=== PATIENT | female | born 1940 | race Caucasian/White ===

== ENCOUNTER → 2020-10-06 09:46 | Outpatient (BNVA) | payer MEDICARE, MEDICAID, SELFPAY | PROVIDERS: PCP Internal Medicine; Visit Provider Nurse Practitioner Family | DX: I48.0 Paroxysmal atrial fibrillation (principal); I73.9 Peripheral vascular disease, unspecified; I25.10 Atherosclerotic heart disease of native coronary artery without angina pectoris; I95.1 Orthostatic hypotension; I10 Essential (primary) hypertension; E11.9 Type 2 diabetes mellitus without complications; E78.5 Hyperlipidemia, unspecified; Z79.899 Other long term (current) drug therapy | CPT/HCPCS: 93005; 99212 ==

== ENCOUNTER → 2020-11-10 10:57 | Outpatient (BNVA) | payer MEDICARE, MEDICAID, SELFPAY | PROVIDERS: PCP Internal Medicine; Visit Provider Nurse Practitioner Family | DX: I95.1 Orthostatic hypotension (principal); I10 Essential (primary) hypertension; I48.0 Paroxysmal atrial fibrillation; I73.9 Peripheral vascular disease, unspecified; I25.10 Atherosclerotic heart disease of native coronary artery without angina pectoris; E78.5 Hyperlipidemia, unspecified; E11.9 Type 2 diabetes mellitus without complications; Z79.899 Other long term (current) drug therapy | CPT/HCPCS: Q3014 ==

== ENCOUNTER 2020-11-19 12:26 | Outpatient (REF) | payer MEDICARE, MEDICAID, SELFPAY ==
[2020-11-19 13:53] LABS: MANUAL DIFF FLAG NO
[2020-11-19 13:59] LABS: Basophils Absolute Auto 0.1 X10*3/uL (0.0-0.2); Basophils Percent Auto 0.8 % (0-2); Eosinophils Absolute Auto 0.5 X10*3/uL (0.0-0.4); Hemoglobin 12.3 g/dl (12.0-16.0); Imm Gran Abs Auto 0.02 X10*3/uL (0.00-0.03); Imm Gran Pct Auto 0.2 % (0.0-0.4); Lymphocytes Absolute Auto 3.4 X10*3/uL (1.2-4.9); Lymphocytes Percent Auto 33.6 % (20-40); Mean Corpuscular HGB Conc 31.5 g/dl (31.0-35.0); Mean Corpuscular Hemoglobin 28.3 pg (27.0-33.0); Mean Corpuscular Volume 89.7 fL (80-98); Mean Platelet Volume 11.6 fL (9.4-12.3); Monocytes Absolute Auto 0.5 X10*3/uL (0.1-1.2); Monocytes Percent Auto 4.7 % (2-11); Neutrophils Absolute Auto 5.6 X10*3/uL (2.0-8.3); Neutrophils Percent Auto 55.7 % (45-73); Platelet Count 275 X10*3/uL (160-400); Red Blood Count 4.35 X10*6/uL (4.20-5.50); Red Cell Distribution Width 14.1 % (11.0-16.0); White Blood Count 10.1 X10*3/uL (4.8-10.8)
[2020-11-19 14:28] LABS: Anion Gap 15 (12-20); Blood Urea Nitrogen 22 mg/dL (9-16); Calcium 8.8 mg/dL (8.4-10.2); Carbon Dioxide 27 mmol/L (22-29); Chloride 99 mmol/L (96-108); Cholesterol 139 mg/dL; Estimated Glomerular Filt Rate 32; Glucose Fasting 415 mg/dL (60-99); HDL Cholesterol 44 mg/dL; LDL Cholesterol Calculated 68 mg/dl; Potassium 4.8 mmol/L (3.3-5.1); Sodium 136 mmol/L (135-145); Triglycerides 136 mg/dL
== END 2020-11-19 12:27 | disposition home or self-care (01) ==
LOC: HO.LAB 12:26
PROVIDERS: PCP Internal Medicine; Visit Provider Nurse Practitioner Family
DX: I10 Essential (primary) hypertension (principal)
CPT/HCPCS: 36415; 80048; 80061; 85025

== ENCOUNTER → 2021-04-19 09:49 | Outpatient (BNVA) | payer MEDICARE, MEDICAID, SELFPAY | PROVIDERS: PCP Internal Medicine; Visit Provider Internal Medicine | DX: I25.10 Atherosclerotic heart disease of native coronary artery without angina pectoris (principal); I48.0 Paroxysmal atrial fibrillation; I95.1 Orthostatic hypotension; I73.9 Peripheral vascular disease, unspecified | CPT/HCPCS: 99212 ==

== ENCOUNTER 2021-10-25 14:38 | Emergency (ER) | payer MEDICARE, MEDICAID, SELFPAY ==
--- NOTE | ~2021-10-25 | CT_ITS ---
EXAMINATION: CT ABDOMEN AND PELVIS WITHOUT CONTRAST CLINICAL INFORMATION: Lower abdominal pain COMPARISON: 07/25/2019 TECHNIQUE: Multidetector volumetric imaging was performed from the superior aspect of the liver through the pubic symphysis. Sagittal and coronal reformatted images were obtained on the technologist's workstation. This CT examination was performed using dose optimization techniques as appropriate, variously including the following: *Automated exposure control *Adjustment of mA and/or kV according to patient size (this includes techniques or standardized protocols for targeted exams where dose is matched to indication/reason for exam; i.e. extremities or head) *Use of iterative reconstruction technique DLP: 494 mGy-cm FINDINGS: LUNG BASES: Clear. LIVER, GALLBLADDER, AND BILIARY TREE: The liver is normal in size, shape, and attenuation. No focal hepatic lesion or biliary ductal dilatation is present. Gallbladder unremarkable. PANCREAS: Unremarkable. SPLEEN: Unremarkable. ADRENAL GLANDS: Unremarkable. KIDNEYS AND URETERS: The kidneys are normal in size, shape, and attenuation. No hydronephrosis, hydroureter, or calculi seen. Bilateral simple fluid attenuating renal cysts are present measuring up to 7.5 cm within the left kidney. No perinephric stranding. BLADDER: Unremarkable. GASTROINTESTINAL TRACT: Left colonic diverticulosis, most concentrated within the sigmoid colon. There is wall thickening pericolic fat stranding diffusely involving the sigmoid colon suggestive sigmoiditis ABDOMINAL WALL: No significant hernia is appreciated. LYMPH NODES: Normal. VASCULAR: Aorta is atherosclerotic but normal caliber. PELVIC VISCERA: Hysterectomy. Left ovary unremarkable. Right ovary not seen. OSSEOUS STRUCTURES: Unremarkable. CT/CT abdomen pelvis wo con IMPRESSION: Findings compatible sigmoiditis. While there are scattered colonic diverticula which are most concentrated within the sigmoid colon, the inflammatory changes involving the sigmoid colon appear somewhat, and not necessarily related to diverticulitis. Consider infectious, inflammatory or ischemic colitis. Fleischner guidelines were followed.
[2021-10-25 15:26] VITALS: BP 137/65; PULSE 72; RESP 16; TEMP 36.2; O2SAT 98; BMI 30.9
[2021-10-25 16:03] LABS: Eosinophils Absolute Auto 0.2 X10*3/uL (0.0-0.4); Eosinophils Percent Auto 1.3 % (0-4); Imm Gran Abs Auto 0.03 X10*3/uL (0.00-0.03); Imm Gran Pct Auto 0.3 % (0.0-0.4); MANUAL DIFF FLAG SCAN; PLT CLUMP 1; Red Cell Distribution Width 14.2 % (11.0-16.0); SCAN SMEAR FLAG 1
[2021-10-25 16:05] LABS: Basophils Absolute Auto 0.1 X10*3/uL (0.0-0.2); Basophils Percent Auto 0.4 % (0-2); Hematocrit 38.9 % (37.0-47.0); Hemoglobin 12.8 g/dl (12.0-16.0); Lymphocytes Absolute Auto 2.5 X10*3/uL (1.2-4.9); Lymphocytes Percent Auto 21.2 % (20-40); Mean Corpuscular HGB Conc 32.9 g/dl (31.0-35.0); Mean Corpuscular Hemoglobin 29.2 pg (27.0-33.0); Mean Corpuscular Volume 88.6 fL (80.0-98.0); Mean Platelet Volume 10.5 fL (9.4-12.3); Monocytes Absolute Auto 0.4 X10*3/uL (0.1-1.2); Monocytes Percent Auto 3.1 % (2-11); Neutrophils Absolute Auto 8.7 x10*3/uL (2.0-8.3); Neutrophils Percent Auto 73.7 % (45-73); Red Blood Count 4.39 X10*6/uL (4.20-5.50)
[2021-10-25 16:06] LABS: White Blood Count 11.8 X10*3/uL (4.8-10.8)
[2021-10-25 16:11] LABS: Anion Gap 15 (12-20); Blood Urea Nitrogen 24 mg/dL (9-16); Calcium 8.8 mg/dL (8.4-10.2); Carbon Dioxide 23 mmol/L (22-29); Chloride 107 mmol/L (96-108); Creatinine Clr Calc Pharmacy 26.4; Estimated Glomerular Filt Rate 36; Glucose Random 148 mg/dL (60-115); Potassium 4.5 mmol/L (3.3-5.1); Sodium 140 mmol/L (135-145)
[2021-10-25 16:15] LABS: COVID-19 Test Negative (Negative)
[2021-10-25 16:28] LABS: Platelet Count 288 X10*3/uL (160-400)
[2021-10-25 16:29] LABS: SLIDE REVIEW VERIFIED
[2021-10-26 00:41] VITALS: BP 156/61; PULSE 69; RESP 12; TEMP 37.1; O2SAT 96
--- NOTE | 2021-10-26 00:43 | ED.NAVMDI ---
HPI - Nausea/Vomiting/Diarrhea General Chief complaint: Nausea/Vomiting/Diarrhea Stated complaint: diarrhea abd pain rectal bleeding Time Seen by Provider: 10/26/21 00:43 Source: patient Mode of arrival: ambulatory Limitations: no limitations History of Present Illness HPI Narrative: patient with diarrhea for 4 days, patient states she is having some diarrhea that is mixed and by itself. NO history of hemorrhoids, history of diverticulitis. No fever but has low abdominal pain MD elicited complaint: diarrhea Pertinent past history: other (diverticulitis) Onset (ago): day(s) Description of diarrhea: blood Associated nausea: No Associated abdominal pain: Yes Location of pain: RLQ and LLQ Severity: mild Quality: cramping Associated symptoms: denies other symptoms Related Data Home Medications Medication Instructions Recorded Confirmed amlodipine 5 mg tablet (Norvasc) 5 mg PO DAILY 10/06/20 11/10/20 atorvastatin 80 mg tablet 80 mg PO DAILY 10/06/20 04/19/21 esomeprazole magnesium 20 mg 20 mg PO DAILY 10/06/20 04/19/21 capsule,delayed release (Nexium 24HR) gabapentin 300 mg capsule 300 mg PO TID 10/06/20 04/19/21 insulin glargine 100 unit/mL (3 10 unit SUBCUT QPM 10/06/20 04/19/21 mL) subcutaneous pen (Lantus Solostar U-100 Insulin) levothyroxine 50 mcg capsule 50 mcg PO DAILY 10/06/20 04/19/21 sitagliptin 25 mg tablet (Januvia) 25 mg PO DAILY 10/06/20 04/19/21 calcium carbonate 600 mg-vitamin cap PO 04/19/21 04/19/21 D3 5 mcg (200 unit) capsule Previous Rx's Medication Instructions Recorded apixaban 5 mg tablet (Eliquis) 5 mg PO BID 90 Days #180 tab 04/19/21 carvedilol 25 mg tablet 25 mg PO BID 90 Days #180 tab 08/03/21 levofloxacin 500 mg tablet 500 mg PO DAILY 10 Days #10 tab 10/26/21 metronidazole 500 mg tablet 500 mg PO TID #30 tab 10/26/21 Allergies Allergy/AdvReac Type Severity Reaction Status Date / Time Penicillins [PCN] Allergy Unknown UNKNOWN Unverified 04/16/20 19:30 penicilline Allergy Unknown Uncoded 02/19/20 00:00 Review of Systems Constitutional: Constitutional: Reports no additional constitutional complaints Eyes: Eyes: Reports no additional eye complaints ENT: Denies dizziness Cardiovascular: Cardiovascular: Reports no additional cardiovascular complaints Respiratory: Respiratory: Reports as per HPI Gastrointestinal: Gastrointestinal: Denies nausea Genitourinary: Genitourinary: Reports no additional female genitourinary complaints Musculoskeletal: Musculoskeletal: Reports no additional musculoskeletal complaints Integumentary/Breasts: Skin/Breast: Denies rash Neurologic: Reports system reviewed and no additional complaints, except as documented, Denies dizziness and Denies Sensory deficit (Neuro) Psychiatric: Psychiatric: Denies anxiety [facility] Past Medical History Medical History CAD (coronary artery disease) CKD (chronic kidney disease) Diabetes HLD (hyperlipidemia) HTN (hypertension) Orthostatic hypotension Paroxysmal A-fib PVD (peripheral vascular disease) Syncope Surgical History Hx of appendectomy Hx of hysterectomy Hx of thyroidectomy Family History Family History Father No problems noted. Mother CAD (coronary artery disease) Social History Social History Alcohol intake: never Patient Tobacco Use Status: Never used Tobacco Use of substances other than those prescribed or required for medical reasons: No Advance Directives: No Advance Directives Information Provided: No Physical Exam Vital Signs: Vital Signs: Last Vital Signs Temp 98.7 F 10/26/21 00:41 Pulse 69 10/26/21 00:41 Resp 12 10/26/21 00:41 BP 156/61 H 10/26/21 00:41 Pulse Ox 96 10/26/21 00:41 BMI result Body Mass Index 30.9 Const: General: healthy appearing Nutritional Appearance: average body habitus Orientation/consciousness: oriented to person and patient oriented x3 Limitations: no limitations HEENT: Head: Yes normal to inspection Ears: external ears normal General nose exam: Normal external nose present Mouth: Normal oral and palatal mucosa present and oropharynx normal Throat: Yes posterior oropharynx normal Eyes: General: appearance normal, both eyes and all related structures Neck: Other: supple Neck: Yes normal visual inspection Chest: Chest palpation & inspection: normal inspection of the chest Resp: Auscultation: clear to auscultation bilaterally Cardio: Jugular venous distension: no JVD Rate: regular rate Rhythm: regular rhythm Heart sounds: S1 normal heart sound present and S2 normal heart sound present GI: Other: lower abdominal pain on palpation Palpation (GI): Soft to palpation and No hepatosplenomegaly present Auscultation: normal bowel sounds : Other: rectal exam no fissure or hemorrhoids, bloody stool General: Yes no CVA tenderness Back/Spine/Pelvis: Back: no CVA tenderness Skin: General skin exam: no rashes or lesions noted Neuro: General: oriented to person and patient oriented x3 Cranial nerves: Yes CN's II-XII intact bilaterally Motor exam (neuro): 5/5 motor strength present throughout Sensory Exam: No Sensory deficit (Neuro) Extrem: General: Yes normal to inspection Psych: Appearance: grossly normal Course Reevaluation(s) Reevaluation #1: history, physical, CT all consistent with diverticulitis. Will start levaquin and flagyl, place patient on clear liquid diet and dc home Time: 02:24 MDM - Nausea/Vomiting/Diarrhea Lab Data Result diagrams: 10/25/21 15:51 10/25/21 15:51 Labs: Lab Results 10/25/21 10/25/21 10/25/21 Range/Units 15:51 15:51 15:51 WBC 11.8 H (4.8-10.8) X10*3/uL RBC 4.39 (4.20-5.50) X10*6/uL Hgb 12.8 (12.0-16.0) g/dl Hct 38.9 (37.0-47.0) % MCV 88.6 (80.0-98.0) fL MCH 29.2 (27.0-33.0) pg MCHC 32.9 (31.0-35.0) g/dl RDW 14.2 (11.0-16.0) % Plt Count 288 (160-400) X10*3/uL MPV 10.5 (9.4-12.3) fL Immature Gran % (Auto) 0.3 (0.0-0.4) % Neut % (Auto) 73.7 H (45-73) % Lymph % (Auto) 21.2 (20-40) % [place] % (Auto) 3.1 (2-11) % Eos % (Auto) 1.3 (0-4) % Baso % (Auto) 0.4 (0-2) % Lymph # (Auto) 2.5 (1.2-4.9) X10*3/uL [place] # (Auto) 0.4 (0.1-1.2) X10*3/uL Eos # (Auto) 0.2 (0.0-0.4) X10*3/uL Baso # (Auto) 0.1 (0.0-0.2) X10*3/uL Abs Immat Gran (auto) 0.03 (0.00-0.03) X10*3/uL Absolute Neuts (auto) 8.7 H (2.0-8.3) x10*3/uL Absolute Nucleated RBC 0.000 (0.0-0.012) X10*3/uL Nucleated RBC % (auto) 0.0 (0.0-0.2) /100WBC Smear Tech's Comments VERIFIED Sodium 140 (135-145) mmol/L Potassium 4.5 (3.3-5.1) mmol/L Chloride 107 (96-108) mmol/L Carbon Dioxide 23 (22-29) mmol/L Anion Gap 15 (12-20) BUN 24 H (9-16) mg/dL Creatinine 1.40 (0.5-1.4) mg/dL Estim Creat Clear Calc 26.4 Estimated GFR 36 Random Glucose 148 H (60-115) mg/dL Calcium 8.8 (8.4-10.2) mg/dL COVID-19 ([facility]ESA) Negative (Negative) COVID-19 Clin Com See Note Imaging Data CT scan - abdomen: Radiologist's impression: CT/CT abdomen pelvis wo con IMPRESSION: Findings compatible sigmoiditis. While there are scattered colonic diverticula which are most concentrated within the sigmoid colon, the inflammatory changes involving the sigmoid colon appear somewhat, and not necessarily related to diverticulitis. Consider infectious, inflammatory or ischemic colitis. ? Fleischner guidelines were followed. Discharge Plan Discharge Clinical Impression: Diverticulitis Patient Disposition: Home, Self-Care Instructions: Diverticulitis (ED), Diverticulitis Diet (ED) Additional Instructions: clear liquid diet for 3 days Prescriptions: New levofloxacin 500 mg tablet 500 mg PO DAILY 10 Days Qty: 10 0RF metronidazole 500 mg tablet 500 mg PO TID Qty: 30 0RF No Action carvedilol 25 mg tablet 25 mg PO BID 90 Days Qty: 180 3RF Rx Instructions: must administer with a meal/food levothyroxine 50 mcg capsule 50 mcg PO DAILY 0RF Rx Instructions: 1 tablet in the a.m monday through monday, 2 tablets on monday amlodipine [Norvasc] 5 mg tablet 5 mg PO DAILY 0RF Januvia 25 mg tablet 25 mg PO DAILY 0RF gabapentin 300 mg capsule 300 mg PO TID 0RF Lantus Solostar U-100 Insulin 100 unit/mL (3 mL) insulin pen 10 unit subcut QPM 0RF atorvastatin 80 mg tablet 80 mg PO DAILY 0RF esomeprazole magnesium [Nexium 24HR] 20 mg capsule,delayed release(DR/EC) 20 mg PO DAILY 0RF calcium carbonate-vitamin D3 600 mg calcium- 200 unit capsule PO 0RF Eliquis 5 mg tablet 5 mg PO BID 90 Days Qty: 180 4RF Referrals: Asa Calderón DO, MD [Primary Care Provider] - 2 days
[2021-10-26] MEDS: metroNIDAZOLE 500 MG TABLET PO (03:16)
[2021-10-26] MEDS: levoFLOXacin 500 MG TABLET PO (03:16)
== END 2021-10-26 03:33 | disposition home or self-care (01) ==
PROVIDERS: Emergency Provider Emergency Medicine; PCP Internal Medicine
DX: K57.32 Diverticulitis of large intestine without perforation or abscess without bleeding (principal); R10.31 Right lower quadrant pain; R10.32 Left lower quadrant pain; R19.7 Diarrhea, unspecified; Z20.822 Contact with and (suspected) exposure to COVID-19; Z79.899 Other long term (current) drug therapy
CPT/HCPCS: 74176; 80048; 85025; 87635; 99283; 99284

== ENCOUNTER → 2022-06-14 12:09 | Outpatient (BNVA) | payer MEDICARE, MEDICAID, SELFPAY | PROVIDERS: PCP Internal Medicine; Visit Provider Internal Medicine | DX: I25.10 Atherosclerotic heart disease of native coronary artery without angina pectoris (principal); I48.0 Paroxysmal atrial fibrillation; I73.9 Peripheral vascular disease, unspecified; I95.1 Orthostatic hypotension | CPT/HCPCS: 99212 ==

== ENCOUNTER → 2022-12-01 14:10 | Outpatient (BNVA) | payer MEDICARE, MEDICAID, SELFPAY | PROVIDERS: PCP Internal Medicine; Visit Provider Psychiatry & Neurology Neurology | DX: R55 Syncope and collapse (principal); I95.1 Orthostatic hypotension | CPT/HCPCS: 99202 ==

== ENCOUNTER 2023-01-25 12:29 | Outpatient (REF) | payer MEDICARE, MEDICAID, SELFPAY ==
--- NOTE | 2023-01-25 12:32 | EEG_ITS ---
This is a 16-channel EEG with an EKG lead. The patient is reported awake during the tracing. Background EEG rhythm is 10 to 12 hertz 5 to 20 microvolt posteriorly and lower amplitude fast anteriorly. Photic stimulation does not produce any significant abnormality. Hyperventilation is not performed. Cardiac lead does not reveal any significant abnormality. No sharp wave spikes or paroxysmal tendency noted. IMPRESSION: Unremarkable EEG. MD RENETTA Adkins/KULDEEP / [phone]
== END 2023-01-25 12:30 | disposition home or self-care (01) ==
LOC: HO.NEURO 12:29
PROVIDERS: PCP Internal Medicine; Visit Provider Psychiatry & Neurology Neurology
DX: R55 Syncope and collapse (principal)
CPT/HCPCS: 95816

== ENCOUNTER 2023-06-28 11:03 | Outpatient (AMB) | payer MEDICARE, MEDICAID, SELFPAY ==
--- NOTE | 2023-06-28 11:05 | A.OFFVIS_ITS ---
Intake Vital Signs 06/28/23 11:16 06/28/23 11:30 Height 4 ft 10 in Weight 145 lb 8.081 oz BMI 30.4 BP 180/78 H 142/78 H Blood Pressure Location Rt brachial Lt brachial Position Sitting Sitting Pulse 63 64 Pulse Source Monitor Intake Visit Reasons: 1 year follow up Intake Note: 1 year follow up w/ EKG Head Of Operation And Logistics Required: No Accompanied by: Self / Same As Patient Allergies Penicillins [PCN] Allergy (Unknown, Verified 06/28/23 11:10) UNKNOWN penicilline Allergy (Unknown, Uncoded 06/28/23 11:10) Unknown Medication List - Last Reconciled 06/28/23 by Jason Blakely MD amlodipine (Norvasc) 5 mg PO DAILY apixaban (Eliquis) 5 mg PO BID 90 days atorvastatin 80 mg PO DAILY calcium carbonate-vitamin D3 600 mg-5 mcg (200 unit) caps PO carvedilol 6.25 mg PO BID esomeprazole magnesium (Nexium 24HR) 20 mg PO DAILY gabapentin 300 mg PO TID insulin glargine (Lantus Solostar U-100 Insulin) 10 units subcut QPM levothyroxine 50 mcg PO DAILY sertraline 25 mg PO DAILY HPI HPI Comments History of Present Illness Details Natividad is here for follow-up regarding coronary artery disease. It seems that she has underlying coronary disease based on cardiac catheterization from [place] from several years ago. Possible PCI but details are not clear. She also has atrial fibrillation that was apparently diagnosed after a stroke and currently on Eliquis. Has carotid/subclavian disease followed by [facility] vascular surgery. Also history of orthostatic hypotension. Previous syncopal episode and admitted to [facility] in 2018. Daughter is mainly translating and she states that patient gets off and on chest burning. Very random. Can happen any time. With and without exertion. Possible angina but not clear. Last stress test from about 3 years ago was okay. [facility] Medical History CAD (coronary artery disease) CKD (chronic kidney disease) Diabetes HLD (hyperlipidemia) HTN (hypertension) Orthostatic hypotension Paroxysmal A-fib PVD (peripheral vascular disease) Syncope Surgical History Hx of hysterectomy Hx of appendectomy Hx of thyroidectomy Family History Father CAD (coronary artery disease) Mother CAD (coronary artery disease) Diabetes Kidney disease Social History Alcohol intake: never Patient Tobacco Use Status: Never used Tobacco Review of Systems Const Denies weakness Card Denies chest pain with activity, Denies syncope, Denies rapid heart rate, Denies pedal edema, Denies edema, Denies lightheadedness, Denies dyspnea on exertion and Denies orthopnea Resp Denies cough and Denies dyspnea on exertion GI Denies hematochezia and Denies change in stool character Musc Denies abnormal gait, Denies muscle cramps, Denies muscle weakness, Denies numbness, Denies radiating pain into limb and Denies tingling Neuro Denies abnormal gait, Denies syncope, Denies numbness, Denies tingling and Denies weakness Physical Exam Vital Signs: Last Vital Signs Pulse 64 06/28/23 11:30 BP 142/78 H 06/28/23 11:30 BMI result Body Mass Index 30.4 Const General: comfortable and no acute distress Orientation/consciousness: patient oriented x3 HEENT Other: Unremarkable Head: Yes normal to inspection Neck Neck: Yes normal visual inspection Chest Chest palpation & inspection: normal inspection of the chest Resp Auscultation: clear to auscultation bilaterally Cardio Palpation: normal PMI Heart sounds: S1 normal heart sound present, S2 normal heart sound present, no gallops, no murmurs and no rubs GI Palpation (GI): Soft to palpation Back/Spine/Pelvis Other: unremarkable Skin General skin exam: no rashes or lesions noted Neuro General: patient oriented x3 Extrem General: Yes normal to inspection Psych Mental Status: mental status grossly normal Office Procedures EKG Details: EKG with sinus rhythm at 64/Min; nonspecific ST-T changes somewhat diffusely. A bit more prominent than in the past. [id number], Complete Assessment & Plan Assessment & Plan (1) Atherosclerotic cardiovascular disease: Code(s): I25.10 - Atherosclerotic heart disease of [place] coronary artery without angina pectoris Plan: Remote PCI from several years ago in [place]. Unknown coronary anatomy. Myocardial perfusion imaging from 2019 showed no ischemia or infarct. As she reports chest burning episodes, we will repeat her stress test. Unlikely to walk on the treadmill and hence can do pharmacological stress with Lexiscan. Otherwise, continue beta-blockers and statins. Last LDL 68 mg/dL. (2) Paroxysmal A-fib: Code(s): I48.0 - Paroxysmal atrial fibrillation Plan: Continue beta-blockers. Continue Eliquis. (3) PVD (peripheral vascular disease): Code(s): I73.9 - Peripheral vascular disease, unspecified Plan: Followed at [facility] vascular surgery. Continue statins. Last LDL 68 mg/dL. Of note, left subclavian stenosis. Hence that could be blood pressure differences between arms. (4) Orthostatic hypotension: Code(s): I95.1 - Orthostatic hypotension Plan: She has had a syncopal episode and admitted to hospital in the past. Nothing recent. However, does get dizzy off and on. (5) HTN (hypertension): Comment: History of low blood pressures on the left due to subclavian stenosis, take blood pressures on the right side only Code(s): I10 - Essential (primary) hypertension Plan: Blood pressure is high today and we checked both sides. There is a difference between the right and left side, right is higher. However, daughter states that frequently blood pressure goes too low at home as much as the 90s. Hence sounds very labile. With a history of orthostatic hypotension, not making any changes at this time. Orders: Orders NM cardiolite stress test Today R07.2 - Precordial pain CA echo transthoracic complete Today I25.10 - Atherosclerotic heart disease of [place] coronary artery without angina pectoris CA lexiscan stress w rosi Today I20.9 - Angina pectoris, unspecified Coding Level of Care Code Est Pt Level 4 (62556) Diagnoses Atherosclerotic cardiovascular disease I25.10 Paroxysmal A-fib I48.0 PVD (peripheral vascular disease) I73.9 Orthostatic hypotension I95.1 HTN (hypertension) I10 CPT Codes EKG - CPT: [id number], Complete ([id number])
[2023-06-28 11:16] VITALS: BP 180/78; PULSE 63; BMI 30.4
[2023-06-28 11:30] VITALS: BP 142/78; PULSE 64
== END 2023-06-28 11:42 | disposition home or self-care (01) ==
PROVIDERS: PCP Internal Medicine; Visit Provider Internal Medicine
DX: I25.10 Atherosclerotic heart disease of native coronary artery without angina pectoris (principal); I48.0 Paroxysmal atrial fibrillation; I73.9 Peripheral vascular disease, unspecified; I95.1 Orthostatic hypotension; I10 Essential (primary) hypertension
CPT/HCPCS: 93010; 99214

== ENCOUNTER → 2023-06-28 11:03 | Outpatient (BNVA) | payer MEDICARE, MEDICAID, SELFPAY | PROVIDERS: PCP Internal Medicine; Visit Provider Internal Medicine | DX: I25.10 Atherosclerotic heart disease of native coronary artery without angina pectoris (principal); I48.0 Paroxysmal atrial fibrillation; I73.9 Peripheral vascular disease, unspecified; I95.1 Orthostatic hypotension; I10 Essential (primary) hypertension | CPT/HCPCS: 93005; 99212 ==

== ENCOUNTER 2024-02-20 07:58 | Outpatient (AMB) | payer MEDICARE, MEDICAID, SELFPAY ==
[2024-02-20 08:15] VITALS: BP 114/62; PULSE 66; BMI 31.0
--- NOTE | 2024-02-20 08:15 | MHC.OFFVIS ---
Vital Signs 02/20/24 08:15 Height 4 ft 10 in Weight 148 lb 2.41 oz BMI 31.0 BP 114/62 Blood Pressure Location Rt brachial Position Sitting Pulse 66 Pulse Source Pulse Oximeter Intake Visit Reasons: Follow up-Chest pain,seen at [facility] International Logistics Manager Required: No Allergies Penicillins [PCN] Allergy (Unknown, Verified 02/20/24 08:20) UNKNOWN penicilline Allergy (Unknown, Uncoded 02/20/24 08:20) Unknown Medication List - Last Reconciled 02/20/24 by CHARU Zaldivar amlodipine (Norvasc) 5 mg PO DAILY apixaban (Eliquis) 5 mg PO BID 90 days atorvastatin 80 mg PO DAILY calcium carbonate-vitamin D3 600 mg-5 mcg (200 unit) caps PO carvedilol 6.25 mg PO BID empagliflozin (Jardiance) 10 mg PO DAILY esomeprazole magnesium (Nexium 24HR) 20 mg PO DAILY gabapentin 300 mg PO TID insulin glargine (Lantus Solostar U-100 Insulin) 10 units subcut QPM levothyroxine 50 mcg PO DAILY sertraline 25 mg PO DAILY HPI HPI Follow up-Chest pain,seen at [facility]: Details: Natividad is an 83-year-old female with past medical history of hypertension, hyperlipidemia, diabetes, chronic kidney disease, obesity, orthostatic hypotension, CVA, paroxysmal AFib, CAD with possible PCI when in [place] who was recently admitted to [facility] with chest discomfort. She ruled out for ACS. Her pain was reproducible and thought to be musculoskeletal. On last visit here 06/28/2023 Dr. Blakely had ordered a nuclear stress test and echocardiogram on her. These tests were not completed. Today she reports she has been feeling well since her hospital discharge last week. She does have some discomfort in her upper back which is worse with palpation. She has no chest discomfort at rest or with activity. When she had the pain last week she said it started in her back and went around to her chest. It was tender to touch. She had not done anything physical to account for this symptom. No palpitations, presyncope, syncope. She does have lightheadedness at times with position changes, sitting to standing. Daughter is present states that she did have a fall yesterday for unclear reason. No shortness of breath, PND, orthopnea or edema. Taking all meds as directed. Daughter is present. She is assisting with Urdu translation at their request. Permit signed. [facility] Medical History Paroxysmal A-fib CKD (chronic kidney disease) Syncope Orthostatic hypotension CAD (coronary artery disease) PVD (peripheral vascular disease) Diabetes HLD (hyperlipidemia) HTN (hypertension) Surgical History Hx of hysterectomy Hx of appendectomy Hx of thyroidectomy Family History Father CAD (coronary artery disease) Mother CAD (coronary artery disease) Diabetes Kidney disease Social History Alcohol intake: never Patient Tobacco Use Status: Never used Tobacco Review of Systems Const All systems reviewed & are unremarkable except as noted in HPI and below ENT Denies dizziness Card Denies chest pain, Denies chest pain at rest, Denies chest pain with activity, Denies rapid heart rate, Denies pedal edema, Denies edema, Denies leg edema, Denies lightheadedness, Denies palpitations, Denies dyspnea, Denies dyspnea on exertion and Denies orthopnea Resp Denies cough, Denies dyspnea and Denies dyspnea on exertion GI Denies hematochezia and Denies change in stool character Musc Denies abnormal gait, Denies limited range of motion, Denies muscle cramps, Denies muscle weakness, Denies numbness, Denies radiating pain into limb, Denies stiffness and Denies tingling Neuro Denies abnormal gait, Denies dizziness, Denies numbness and Denies tingling Endo Denies palpitations Physical Exam Vital Signs: Last Vital Signs Pulse 66 02/20/24 08:15 BP 114/62 02/20/24 08:15 BMI result Body Mass Index 31.0 Const General: cooperative, healthy appearing, comfortable and no acute distress Orientation/consciousness: patient oriented x3 Neck Neck: Yes normal visual inspection Resp Effort & Inspection: normal respiratory effort Auscultation: clear to auscultation bilaterally, no crackles, no rales, no rhonchi and no wheezes Cardio Jugular venous distension: no JVD Rate: regular rate Rhythm: regular rhythm Heart sounds: S1 normal heart sound present, S2 normal heart sound present, no murmurs and no rubs Neuro General: patient oriented x3 Extrem General: Yes normal to inspection and No no pedal edema Psych Appearance: grossly normal Mental Status: mental status grossly normal Speech and movement: Normal speech and movement present Assessment & Plan Assessment & Plan (1) Atherosclerotic cardiovascular disease: Code(s): I25.10 - Atherosclerotic heart disease of [place] coronary artery without angina pectoris Category: Medical Plan: History of CAD. Possible PCI when in [place] previously, details unknown. On last visit she reported vague chest discomfort. A nuclear stress test was ordered however patient refuses to complete. Echocardiogram was ordered and not done for unclear reason. She was seen at [facility] 02/11/2024 at [facility] for back and chest discomfort. She ruled out for ACS. A CTA of the chest showed no PE. Her EKG showed sinus rhythm, lateral T-wave abnormality, rate 75. Last EKG in our office showed sinus rhythm with nonspecific ST and T-wave abnormalities noted. Today she has no reports of anginal sounding symptoms. She does have tenderness to palpation of the muscles of her upper back. No chest wall tenderness noted. Signs and symptoms of angina reviewed. She continues to refuse nuclear stress test. Says she has had in the past and it made her sick. She will not be able to walk on a treadmill. She is agreeable to complete the echocardiogram. Will assess for EF and wall motion at that time. Continue high-dose atorvastatin, carvedilol. She is not on aspirin as she is on Eliquis. Emergency care if ever needed for symptoms. Cardiology follow-up 6 months, sooner if needed. (2) Paroxysmal A-fib: Code(s): I48.0 - Paroxysmal atrial fibrillation Category: Medical Plan: History of paroxysmal atrial fibrillation. EKG done at [facility] showing sinus rhythm. Pulse is very regular on examination today, clinically in sinus rhythm. She denies having any recent heart palpitations. Will have her continue on carvedilol and she is on Eliquis for anticoagulation. No bleeding issues reported. (3) Orthostatic hypotension: Code(s): I95.1 - Orthostatic hypotension Category: Medical Plan: History of orthostatic hypotension. Blood pressure on the low side today. She is noted to be orthostatic on exam with blood pressure sitting 102/56, standing 88/48 when checked by me. Daughter states that when they hold blood pressure medications for low blood pressure readings her follow-up blood pressures are elevated as high as 160/90. At this time will have her increase her fluid intake. It sounds like she is not drinking adequate fluid throughout the day. If blood pressures continue to be low then amlodipine can be reduced or stopped. Continue carvedilol. (4) HTN (hypertension): Comment: History of low blood pressures on the left due to subclavian stenosis, take blood pressures on the right side only Code(s): I10 - Essential (primary) hypertension Category: Medical Plan: As above (5) HLD (hyperlipidemia): Code(s): E78.5 - Hyperlipidemia, unspecified Category: Medical Plan: [place] LDL goal less than 70 in patient with diabetes and CAD. Labs done at [facility] on 02/12/2024 showed LDL 90. The test was done in the afternoon and was most likely not fasting. Will plan to recheck a fasting lipid profile at future visit. Continue high-dose atorvastatin. (6) Hospital discharge follow-up: Code(s): Z09 - Encounter for follow-up examination after completed treatment for conditions other than malignant neoplasm Category: Medical Plan: [facility] admission as above Coding Level of Care Code Est Pt Level 4 (72770) Diagnoses Atherosclerotic cardiovascular disease I25.10 Paroxysmal A-fib I48.0 Orthostatic hypotension I95.1 HTN (hypertension) I10 HLD (hyperlipidemia) E78.5 Hospital discharge follow-up Z09 Time Spent (min) 28
== END 2024-02-20 08:47 | disposition home or self-care (01) ==
PROVIDERS: PCP Internal Medicine; Visit Provider Nurse Practitioner Family
DX: I25.10 Atherosclerotic heart disease of native coronary artery without angina pectoris (principal); I48.0 Paroxysmal atrial fibrillation; I95.1 Orthostatic hypotension; I10 Essential (primary) hypertension; E78.5 Hyperlipidemia, unspecified; Z09 Encounter for follow-up examination after completed treatment for conditions other than malignant neoplasm
CPT/HCPCS: 99214

== ENCOUNTER → 2024-02-20 07:58 | Outpatient (BNVA) | payer MEDICARE, MEDICAID, SELFPAY | PROVIDERS: PCP Internal Medicine; Visit Provider Nurse Practitioner Family | DX: I25.10 Atherosclerotic heart disease of native coronary artery without angina pectoris (principal); I48.0 Paroxysmal atrial fibrillation; I95.1 Orthostatic hypotension; I10 Essential (primary) hypertension; E78.5 Hyperlipidemia, unspecified; Z79.01 Long term (current) use of anticoagulants; Z79.899 Other long term (current) drug therapy | CPT/HCPCS: 99212 ==

== ENCOUNTER → 2024-03-06 10:57 | Outpatient (REF) | payer MEDICARE, MEDICAID, SELFPAY ==
--- NOTE | 2024-03-06 11:00 | CA_ITS ---
Transthoracic Echocardiogram Patient (Last, First, Middle): Natividad Oliver, Gender: Female Date of : 1940 Age: 83 Procedure Date: 03/06/2024 Procedure Type: Transthoracic Echocardiogram Location: OP Height: 149.86 cm Weight: 66.68 kg BSA: 1.62 m2 Heart Rate: bpm BP: 136 / 82 mmHg Sole Leather Cutting Machine Operator: TO Referring MD: Jason Blakely MD Traveling Clerk: Yong Blue MD Symptoms: I25.10 - Atherosclerotic heart disease of [place] coronary artery without... Study Quality: Fair ECG Rhythm: Sinus Conclusions: - 1. Mildly reduced LV ejection fraction 45-50% with regional wall motion abnormality consistent with coronary artery disease 2. Normal cardiac valvular Doppler 3. Normal RV systolic pressure next 4. No gross pericardial effusion Findings Procedure Information The patient declines contrast. Left Ventricle Normal left ventricular cavity size. There is normal left ventricular wall thickness. The left ventricular systolic function is mildly decreased. The visually estimated ejection fraction is between 45-50%. Spectral Doppler is indicative of an impaired relaxation filling pattern. E/E prime ratio is between 8 and 15 consistent with indeterminate filling pressures. There is mild septal asymmetric hypertrophy. Wall Motion Rest Echo Findings The basal inferior and basal inferoseptal segments are akinetic. All other scored wall segments showed normal motion. Right Ventricle Normal right ventricular cavity size and systolic function. Atria The left atrium is likely dilated. There is no evidence of interatrial shunt. The right atrium is normal in size. Aortic Valve The aortic valve structure and function is likely normal. There is no aortic valve stenosis. There is no aortic valve regurgitation. Mitral Valve Normal mitral valve structure and function. There is trace mitral valve regurgitation. There is no mitral valve stenosis. Pulmonic Valve The pulmonic valve is likely normal. Tricuspid Valve Normal tricuspid valve structure. There is trace tricuspid valve regurgitation. The right ventricular systolic pressure is normal. The right ventricular systolic pressure is 16 mmHg. Normal right atrial pressure. Great Vessels The aorta was not well visualized. The pulmonary artery was not well visualized. There is no dilatation of the ascending aorta measuring 3.20 cm. Venous The inferior vena cava is normal in size and collapses greater than 50% with inspiration. Pericardium/Pleural There is no evidence of pericardial effusion. Measurements 2D Linear Measurements IVSd: 1.34 0.6-0.9/0.6-1.0 cm LVIDd: 4.17 3.9-5.3/4.2-5.9 cm LVIDd Index: 2.57 2.4-3.2/2.2-3.1 cm/m2 LVIDs: 2.86 2.0-3.6 cm LVPWd: 0.80 0.7-1.1 cm LA Diam: 3.80 2.7-3.8/3.0-4.0 cm LAIDs Index: 2.35 1.5-2.3 cm/m2 LV Mass: 186.00 67-162/88-224 g LV Mass Index: 114.82 43-95/49-115 g/m2 LVOT Diam: 2.00 3.0+(-)1.3 cm 2D Systolic Function EF 4C: 47.00 >55% EF 2C: 45.50 >55% EF BiP: 45.70 >55% Mitral Valve MV Pk E: 0.47 MV PK A: 0.94 MV Decel Time: 287.00 E/A: 0.50 E'Lateral: 4.03 E'Medial: 2.50 E/E' Med: 18.70 E/E' Lat: 11.60 PHT: 84.00 MVA PHT: 2.62 Decel [place]: 1.63 Aortic Valve AoV Pk Rojas: 1.22 AoV Mn Rojas: 0.84 AoV VTI: 0.28 AoV Pk Grad: 6.00 Aov Mn Grad: 3.00 MIKI Cont.VTI: 1.88 LVOT LVOT Pk Rojas: 0.63 LVOT Mn Rojas: 0.42 LVOT VTI: 0.17 LVOT Pk Grad: 2.00 LVOT Mn Grad: 1.00 LVOT Diam: 2.00 LVOT Area: 3.14 Diastolic Function MV Pk E: 0.47 MV Pk A: 0.94 E/A: 0.50 E'Medial: 2.50 E/E' Med: 18.70 E' Laterial: 4.03 E/E' Lat: 11.60 Right Ventricle TAPSE (mm): 16.10 TVS' Rojas: 9.25 Tricuspid Valve TR Pk Rojas: 1.82 TR Pk Grad: 13.00 RA Press: 3.00 RVSP: 16.00 Great Vessels Aorta Ao Asc: 3.20 2.1-3.4 cm Updated in Other Vendor System with Status of Final Yong Blue MD electronically signed on 03/07/2024 2:21:39 PM with status of Final
== END ==
LOC: HO.CARD 10:57
PROVIDERS: PCP Internal Medicine; Visit Provider Internal Medicine
DX: I25.10 Atherosclerotic heart disease of native coronary artery without angina pectoris (principal)
CPT/HCPCS: 93306

== ENCOUNTER → 2024-03-06 11:00 | Outpatient (BNV) | payer MEDICARE, MEDICAID, SELFPAY | PROVIDERS: PCP Internal Medicine; Visit Provider Internal Medicine Cardiovascular Disease | DX: I42.2 Other hypertrophic cardiomyopathy (principal); I51.89 Other ill-defined heart diseases | CPT/HCPCS: 93306 ==

== ENCOUNTER 2024-08-20 08:41 | Outpatient (AMB) | payer MEDICARE, MEDICAID, SELFPAY ==
--- NOTE | 2024-08-20 09:47 | MHC.OFFVIS ---
Vital Signs 08/20/24 09:48 Height 4 ft 10 in Weight 143 lb 4.807 oz BMI 29.9 BP 118/60 Blood Pressure Location Lt brachial Position Sitting Pulse 76 Pulse Source Monitor Intake Visit Reasons: 6 mth fu Packing Machine Feeder Required: Yes Packing Machine Feeder Services: Packing Machine Feeder Offered & Declined Accompanied by: Daughter Allergies Penicillins [PCN] Allergy (Unknown, Verified 02/20/24 08:20) UNKNOWN penicilline Allergy (Unknown, Uncoded 02/20/24 08:20) Unknown Medication List - Last Reconciled 08/20/24 by Radha Fernandez NP-C apixaban (Eliquis) 5 mg PO BID 90 days atorvastatin 80 mg PO DAILY calcium carbonate-vitamin D3 600 mg-5 mcg (200 unit) caps PO carvedilol 3.15 mg PO BID gabapentin 300 mg PO TID insulin glargine (Lantus Solostar U-100 Insulin) 10 units subcut QPM levothyroxine 50 mcg PO DAILY sertraline 25 mg PO DAILY HPI HPI 6 mth fu: Details: Natividad is an 83-year-old female with past medical history of hypertension, hyperlipidemia, diabetes, chronic kidney disease, obesity, orthostatic hypotension, CVA, paroxysmal AFib, CAD with possible PCI when in [place] who was admitted to [facility] last January with chest discomfort. She ruled out for ACS. Her pain was reproducible and thought to be musculoskeletal. She now presents for follow-up Today she reports she has been feeling well since her last visit. She has no chest discomfort at rest or with activity. No shortness of, PND, orthopnea or edema. 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 This is not a new thing for her and has been going on for many years. She has followed with Neurology. Taking all meds as directed. Her blood pressure has been running low at home. She is more lightheaded when her systolic reading is in the 90s. Daughter assisting with [place] translation at their request. [facility] Medical History Paroxysmal A-fib CKD (chronic kidney disease) Syncope Orthostatic hypotension CAD (coronary artery disease) PVD (peripheral vascular disease) Diabetes HLD (hyperlipidemia) HTN (hypertension) Surgical History Hx of hysterectomy Hx of appendectomy Hx of thyroidectomy Family History Father CAD (coronary artery disease) Mother CAD (coronary artery disease) Diabetes Kidney disease Social History Alcohol intake: never Patient Tobacco Use Status: Never used Tobacco Review of Systems Const Details: falls/ siezure type events - longstanding issue per daughter All systems reviewed & are unremarkable except as noted in HPI and below Denies weakness ENT Denies dizziness Card Denies chest pain, Denies chest pain with activity, Denies syncope, Denies rapid heart rate, Denies pedal edema, Denies edema, Denies leg edema, Denies lightheadedness, Denies palpitations, Denies dyspnea, Denies dyspnea on exertion and Denies orthopnea Resp Denies cough, Denies dyspnea and Denies dyspnea on exertion GI Denies hematochezia and Denies change in stool character Musc Denies abnormal gait, Denies muscle cramps, Denies muscle weakness, Denies numbness, Denies radiating pain into limb and Denies tingling Neuro Denies abnormal gait, Denies dizziness, Denies syncope, Denies numbness, Denies tingling and Denies weakness Endo Denies palpitations Physical Exam Vital Signs: Last Vital Signs Pulse 76 08/20/24 09:48 BP 118/60 08/20/24 09:48 BMI result Body Mass Index 29.9 Const General: cooperative, healthy appearing, comfortable and no acute distress Orientation/consciousness: patient oriented x3 Neck Neck: Yes normal visual inspection and Yes no JVD Resp Effort & Inspection: normal respiratory effort Auscultation: clear to auscultation bilaterally, no rales, no rhonchi and no wheezes Cardio Jugular venous distension: no JVD Rate: regular rate Rhythm: regular rhythm Heart sounds: S1 normal heart sound present, S2 normal heart sound present, no murmurs and no rubs Neuro General: patient oriented x3 Extrem General: Yes normal to inspection and No no pedal edema Psych Appearance: grossly normal Mental Status: mental status grossly normal Speech and movement: Normal speech and movement present Office Procedures EKG Details: Today, read by me, sinus rhythm, nonspecific ST and T-wave abnormality, QTC 461 milliseconds, rate 76 [id number], Complete Assessment & Plan Assessment & Plan (1) Atherosclerotic cardiovascular disease: Code(s): I25.10 - Atherosclerotic heart disease of [place] coronary artery without angina pectoris Category: Medical Plan: History of CAD. Possible PCI when in [place] previously, details unknown. She had previously reported some vague chest discomfort and a nuclear stress test was previously ordered however patient refuses to complete. She was seen at [facility] 02/11/2024 at [facility] for back and chest discomfort. She ruled out for ACS. A CTA of the chest showed no PE. Echocardiogram was done on 03/06/2024 showing EF 45-50%, regional wall motion abnormality consistent with CAD. A stress test was recommended however patient again declined. Today she has no reports of anginal sounding symptoms. She does only light physical activities at home. Continue high-dose atorvastatin. She is not on aspirin as she is on Eliquis. Due to reports of low blood pressures will change carvedilol to metoprolol XL. Instructed to call if systolic blood pressures running less than 100. Emergency care if ever needed for symptoms. Cardiology follow-up 6 months, sooner if needed. (2) Paroxysmal A-fib: Code(s): I48.0 - Paroxysmal atrial fibrillation Category: Medical Plan: History of paroxysmal atrial fibrillation. EKG today showing normal sinus rhythm, rate 76. Will have her continue on carvedilol and she is on Eliquis for anticoagulation. No bleeding issues reported. [facility] labs from 02/11/2024 shows hemoglobin 13.6, creatinine 1.16. (3) Orthostatic hypotension: Code(s): I95.1 - Orthostatic hypotension Category: Medical Plan: History of orthostatic hypotension. Daughter tells me home blood pressures have been running low at times. She does have lightheadedness when her systolic is in the 90s. She also describes episodes of seizure-type event that have been longstanding for her. Blood pressure in the office 118/60. At this time I will stop carvedilol and change it to metoprolol XL. Daughter will continue to monitor blood pressure and call us if it continues to be low at home. Discussed good hydration, using caution from sitting to standing. Amlodipine was previously stopped. (4) HTN (hypertension): Comment: History of low blood pressures on the left due to subclavian stenosis, take blood pressures on the right side only Code(s): I10 - Essential (primary) hypertension Category: Medical Plan: As above (5) HLD (hyperlipidemia): Code(s): E78.5 - Hyperlipidemia, unspecified Category: Medical Plan: [place] LDL goal less than 70 in patient with diabetes and CAD. Labs done at [facility] on 02/12/2024 showed LDL 90. The test was done in the afternoon and was most likely not fasting. Labs are followed by her PCP. Continue high-dose atorvastatin. Plan Time spent on chart review, documentation, interview and assessment Medications: New metoprolol succinate ER 25 mg PO DAILY 30 tabs 5RF Coding Level of Care Code Est Pt Level 4 (15766) Complex EM visit Add On G2211 Diagnoses Atherosclerotic cardiovascular disease I25.10 Paroxysmal A-fib I48.0 Orthostatic hypotension I95.1 HTN (hypertension) I10 HLD (hyperlipidemia) E78.5 CPT Codes EKG - CPT: [id number], Complete ([id number]) Time Spent (min) 28
[2024-08-20 09:48] VITALS: BP 118/60; PULSE 76; BMI 29.9
== END 2024-08-20 10:48 | disposition home or self-care (01) ==
PROVIDERS: PCP Internal Medicine; Visit Provider Nurse Practitioner Family
DX: I25.10 Atherosclerotic heart disease of native coronary artery without angina pectoris (principal); I48.0 Paroxysmal atrial fibrillation; I95.1 Orthostatic hypotension; I10 Essential (primary) hypertension; E78.5 Hyperlipidemia, unspecified
CPT/HCPCS: 93010; 99214; G2211

== ENCOUNTER → 2024-08-20 08:41 | Outpatient (BNVA) | payer MEDICARE, MEDICAID, SELFPAY | PROVIDERS: PCP Internal Medicine; Visit Provider Nurse Practitioner Family | DX: I10 Essential (primary) hypertension (principal); I48.0 Paroxysmal atrial fibrillation; I25.10 Atherosclerotic heart disease of native coronary artery without angina pectoris; I95.1 Orthostatic hypotension; E78.5 Hyperlipidemia, unspecified; Z86.73 Personal history of transient ischemic attack (TIA), and cerebral infarction without residual deficits | CPT/HCPCS: 93005; 99212 ==

== ENCOUNTER 2025-03-07 08:46 | Outpatient (AMB) | payer MEDICARE, MEDICAID, SELFPAY ==
--- OUTSIDE RECORDS SUMMARY | 2025-03-07 09:01 | XMS_ITS | Encounter Summary ---
Author Organization [employer] Address [address] [place] [address] Care Team Providers Care Fire Equipment Repairer Inspector Name Role Phone Physician, No Pcp Primary Care Provider Unavaila ble Encounter Details Date Type Department Care Team (Late st Contact Info) Description 06/03/2024 Lab Requisition [facility] - Main Lab [address] [facility] [place] [address] Asa Calderón DO [address] [place] [phone] Hematuria, unspecified; Urinary tract infection, site not specified Social History Tobacco Use Types Packs/Day Years Used Date Smoking Tobacco: Never Assessed Comments Unknown Sex and Gender Information Value Date Recorded Sex Assigned at Not on file Legal Sex Female 4:32 AM EST Gender Identity Not on file Sexual Orientation Not on file documented as of this encounter Plan of Treatment Not on file documented as of this encounter Procedures Procedure Name Priority Date/Time Associated Diagnosis Comments URINALYSIS WITH REFLEX MICROSCOPIC Routine 06/03/2024 2:00 PM EST Hematuria, unspecified Urinary tract infection, site not specified URINALYSIS WITH REFLEX MICROSCOPIC Routine 06/03/2024 2:00 PM EST Hematuria, unspecified Urinary tract infection, site not specified CULTURE URINE Routine 06/03/2024 2:00 PM EST Hematuria, unspecified Urinary tract infection, site not specified documented in this encounter Results * (ABNORMAL) Urinalysis with reflex microscopic (06/03/2024 2:00 PM EST) Specific [place] Urine 1.032(H) 1.003 - 1.030 LAB URINALYSIS - AUTOMATED METHOD 06/03/2024 4:37 PM [facility] pH, Urine 6.0 5.0 - 8.0 pH LAB URINALYSIS - AUTOMATED METHOD 06/03/2024 4:37 PM [facility] Leukocytes, Urine Moderate(A) Negative LAB URINALYSIS - AUTOMATED METHOD 06/03/2024 4:37 PM [facility] Nitrite, Urine Negative Negative LAB URINALYSIS - AUTOMATED METHOD 06/03/2024 4:37 PM [facility] Protein, Urine 30(A) <=Trace mg/dL LAB URINALYSIS - AUTOMATED METHOD 06/03/2024 4:37 PM [facility] Glucose, Urine >=1000(A) Negative mg/dL LAB URINALYSIS - AUTOMATED METHOD 06/03/2024 4:37 PM [facility] Ketones, Urine Trace(A) Negative mg/dL LAB URINALYSIS - AUTOMATED METHOD 06/03/2024 4:37 PM [facility] Urobilinogen , Urine 1.0 0.2 - 1.0 mg/dL LAB URINALYSIS - AUTOMATED METHOD 06/03/2024 4:37 PM [facility] Bilirubin, Urine Negative Negative LAB URINALYSIS - AUTOMATED METHOD 06/03/2024 4:37 PM [facility] Blood, Urine Moderate(A) Negative LAB URINALYSIS - AUTOMATED METHOD 06/03/2024 4:37 PM [facility] RBC, Urine 37.3(H) 0 - 4 /HPF LAB URINALYSIS - AUTOMATED METHOD 06/03/2024 4:37 PM [facility] WBC, Urine 419.1(H) 0 - 4 /HPF LAB URINALYSIS - AUTOMATED METHOD 06/03/2024 4:37 PM [facility] Squamous Epithelial, Urine >100(H) 0 - 60 /LPF LAB URINALYSIS - AUTOMATED METHOD 06/03/2024 4:37 PM [facility] Bacteria, Urine Few(A) Negative /HPF LAB URINALYSIS - AUTOMATED METHOD 06/03/2024 4:37 PM [facility] Hyaline Casts, Urine 2.0 0 - 3 /LPF LAB URINALYSIS - AUTOMATED METHOD 06/03/2024 4:37 PM [facility] Yeast, Urine Present(A) None /HPF LAB URINALYSIS - AUTOMATED METHOD 06/03/2024 4:37 PM [facility] Urine Urine specimen obtained by clean catch procedure / Unknown 06/03/2024 2:00 PM EST 06/03/2024 3:36 PM EST [facility] Final Re sult Performing Organization Address [facility]/ZIP Co de Phone Number [facility] [address] [place] [address], * Culture urine (06/03/2024 2:00 PM EST) Culture, Urine >100,000 CFU/mL Mixed urogenital yasmine, no uropathogens present. Suggest repeat specimen if clinically indicated. 06/04/2024 10:52 AM [facility] Urine Urine specimen obtained by clean catch procedure / Unknown 06/03/2024 2:00 PM EST 06/03/2024 3:36 PM EST Asa Calderón LAB MICROBIOLOGY - GENERAL OR DERABLES Final Result Performing Organization Address [facility]/ZIP Co de Phone Number [facility] [address] [place] [address], documented in this encounter Visit Diagnoses Diagnosis Hematuria, unspecified Urinary tract infection, site not specified documented in this encounter Care Teams Fire Equipment Repairer Inspector Relationship Specialty Start Date End Date Physician, No Pcp PCP - General 10/11/22 documented as of this encounter
--- OUTSIDE RECORDS SUMMARY | 2025-03-07 09:01 | XMS_ITS | Encounter Summary ---
Author Organization [facility] Address [address] [facility] [address] [place] [address] Phone Care Team Providers Care Skiving Machine Operator Name Role Phone Asa Calderón DO Primary Care Provider [phone] Reason for Visit * Reason Comments Med Refill Encounter Details Date Type Department Care Team (Late Contact Info) Description 04/25/2021 Refill [facility] [address] [place] [address] Sriram Nugent MD [address] [facility] [address] [place] [address] Social History Tobacco Use Types Packs/Day Years Used Date Smoking Tobacco: Never Alcohol Use Standard Drinks/Week Comments No 0 (1 standard drink = 0.6 oz pur e alcohol) Comments Unknown Sex and Gender Information Value Date Recorded Sex Assigned at Not on file Legal Sex Female 4:46 PM EST Gender Identity Not on file Sexual Orientation Not on file documented as of this encounter Miscellaneous Notes * Telephone Encounter - Sriram Nugent MD - 04/25/2021 10:16 PM EDT Needs f/u in 5-6 weeks with me 1. tell them I sent rx but no refils 2. They must see me or have a telehealth visit with me before I can renew it again 3. when u call them be sure to make the f/u appt at the same time u inform them th rx was sent by me documented in this encounter Plan of Treatment Upcoming Encounters Date Type Department Care Team (Late Contact Info) Description 11/25/2025 1:30 PM EDT Office Visit [facility] [address] [address] Sriram Nugent MD [address] [address] documented as of this encounter Visit Diagnoses Not on filedocumented in this encounter Care Teams Skiving Machine Operator Relationship Specialty Start Date End Date Asa Calderón DO [address] [place] [address] PCP - General 08/10/20 documented as of this encounter
--- NOTE | 2025-03-07 09:15 | MHC.OFFVIS ---
Vital Signs 03/07/25 09:16 Height 4 ft 10 in Weight 140 lb BMI 29.3 BP 122/60 Blood Pressure Location Lt brachial Position Sitting Pulse 70 Pulse Source Pulse Oximeter Intake Visit Reasons: 6m follow up r/s 02-13-25 Automotive Worker Foreman Required: Yes Automotive Worker Foreman Services: Automotive Worker Foreman Offered & Declined Accompanied by: Daughter Allergies Penicillins (PCN) Allergy (Unknown, Verified 02/20/24 08:20) UNKNOWN penicilline Allergy (Unknown, Uncoded 02/20/24 08:20) Unknown Medication List - Last Reconciled 03/07/25 by Radha Fernandez MANAGER PLANNING-C apixaban (Eliquis) 5 mg PO BID 90 days atorvastatin 80 mg PO DAILY calcium carbonate-vitamin D3 600 mg-5 mcg (200 unit) caps PO carvedilol 3.125 mg PO ONCE gabapentin 300 mg PO TID insulin glargine (Lantus Solostar U-100 Insulin) 10 units subcut QPM levothyroxine 50 mcg PO DAILY sertraline 25 mg PO DAILY HPI HPI 6m follow up r/s 02-13-25: Details: Natividad is an 84-year-old female with past medical history of hypertension, hyperlipidemia, diabetes, chronic kidney disease, obesity, orthostatic hypotension, CVA, paroxysmal AFib, CAD with possible PCI when in [place], abnormal nuclear stress test and declined cardiac catheterization who now presents for follow-up. Today she reports she has been feeling well since her last visit in July. She has no chest discomfort at rest or with activity. No shortness of, PND, orthopnea or edema. Episodes of lightheadedness which is not new. Does not seem to correlate with low blood pressures according to her daughter. Her blood pressure is variable at times with systolic in the 80s to 90s and other times in the 150s. She says her cuff has been checked in the office for accuracy. Ambulates with a cane and does light physical activity. Not taking metoprolol for unclear reason. She reports compliance with Eliquis twice daily. No bleeding issues reported. Daughter assisting with Icelandic translation at their request. [facility] Medical History Paroxysmal A-fib CKD (chronic kidney disease) Syncope Orthostatic hypotension CAD (coronary artery disease) PVD (peripheral vascular disease) Diabetes HLD (hyperlipidemia) HTN (hypertension) Surgical History Hx of hysterectomy Hx of appendectomy Hx of thyroidectomy Family History Father CAD (coronary artery disease) Mother CAD (coronary artery disease) Diabetes Kidney disease Social History Alcohol intake: never Patient Tobacco Use Status: Never used Tobacco Review of Systems Const All systems reviewed & are unremarkable except as noted in HPI and below Denies weakness ENT Reports dizziness (hx vertigo) Card Denies chest pain, Denies chest pain with activity, Denies syncope, Denies rapid heart rate, Denies pedal edema, Denies edema, Denies leg edema, Denies lightheadedness, Denies palpitations, Denies dyspnea, Denies dyspnea on exertion and Denies orthopnea Resp Denies cough, Denies dyspnea and Denies dyspnea on exertion GI Denies hematochezia and Denies change in stool character Musc Denies abnormal gait, Denies muscle cramps, Denies muscle weakness, Denies numbness, Denies radiating pain into limb and Denies tingling Neuro Denies abnormal gait, Reports dizziness (hx vertigo), Denies syncope, Denies numbness, Denies tingling and Denies weakness Endo Denies palpitations Physical Exam Vital Signs: Last Vital Signs Pulse 70 03/07/25 09:16 BP 122/60 03/07/25 09:16 BMI result Body Mass Index 29.3 Const Other: petite elderly General: cooperative, healthy appearing, comfortable and no acute distress Orientation/consciousness: patient oriented x3 Neck Neck: Yes normal visual inspection and Yes no JVD Resp Effort & Inspection: normal respiratory effort Auscultation: clear to auscultation bilaterally, no rales, no rhonchi and no wheezes Cardio Jugular venous distension: no JVD Rate: regular rate Rhythm: regular rhythm Heart sounds: S1 normal heart sound present, S2 normal heart sound present, no murmurs and no rubs Neuro General: patient oriented x3 Extrem General: Yes normal to inspection and No no pedal edema Psych Appearance: grossly normal Mental Status: mental status grossly normal Speech and movement: Normal speech and movement present Assessment & Plan Assessment & Plan (1) Atherosclerotic cardiovascular disease: Code(s): I25.10 - Atherosclerotic heart disease of [place] coronary artery without angina pectoris Category: Medical Plan: History of CAD. Possible PCI when in [place] previously, details unknown. She had previously reported some vague chest discomfort and a nuclear stress test was previously ordered however patient refuses to complete. She was seen at [facility] 02/11/2024 at [facility] for back and chest discomfort. She ruled out for ACS. Echocardiogram was done on 03/06/2024 showing EF 45-50%, regional wall motion abnormality consistent with CAD. A stress test was recommended however patient again declined. Currently no anginal symptoms. Continue with medical management. Continue high-dose atorvastatin with ideal LDL goal less than 70. She is not on aspirin as she is on Eliquis. Recommend she take metoprolol as directed. Signs and symptoms of angina reviewed with her. Emergency care if ever needed for symptoms. Cardiology follow-up 6 months, sooner if needed. (2) Paroxysmal A-fib: Code(s): I48.0 - Paroxysmal atrial fibrillation Category: Medical Plan: History of paroxysmal atrial fibrillation. EKG last visit showing normal sinus rhythm, rate 76. Pulse is regular on examination today. Recommend use of low-dose metoprolol to help limit PAF. Continue Eliquis for anticoagulation. [facility] labs from 02/11/2024 shows hemoglobin 13.6, creatinine 1.16. She is due for updated labs. (3) Orthostatic hypotension: Code(s): I95.1 - Orthostatic hypotension Category: Medical Plan: History of orthostatic hypotension. Home blood pressures seem variable. Reviewed good hydration and use caution when going sitting to standing. Instructed to call if blood pressure is consistently running less than 100 systolic. (4) HTN (hypertension): Comment: History of low blood pressures on the left due to subclavian stenosis, take blood pressures on the right side only Code(s): I10 - Essential (primary) hypertension Category: Medical Plan: Blood pressure goal less than 130/80. In normal range at this time. (5) HLD (hyperlipidemia): Code(s): E78.5 - Hyperlipidemia, unspecified Category: Medical Plan: Orla LDL goal less than 70 in patient with diabetes and CAD. Labs done at [facility] on 02/12/2024 showed LDL 90. The test was done in the afternoon and was most likely not fasting. Labs are followed by her PCP. Continue high-dose atorvastatin. Plan Time spent on chart review, documentation, interview and assessment Coding Level of Care Code Est Pt Level 3 (26124) Complex EM visit Add On G2211 Diagnoses Atherosclerotic cardiovascular disease I25.10 Paroxysmal A-fib I48.0 Orthostatic hypotension I95.1 HTN (hypertension) I10 HLD (hyperlipidemia) E78.5 Time Spent (min) 24
[2025-03-07 09:16] VITALS: BP 122/60; PULSE 70; BMI 29.3
== END 2025-03-07 09:44 | disposition home or self-care (01) ==
LOC: HO.HCS 08:47
PROVIDERS: PCP Internal Medicine; Visit Provider Nurse Practitioner Family
DX: I25.10 Atherosclerotic heart disease of native coronary artery without angina pectoris (principal); I48.0 Paroxysmal atrial fibrillation; I95.1 Orthostatic hypotension; I10 Essential (primary) hypertension; E78.5 Hyperlipidemia, unspecified
CPT/HCPCS: 99213; G2211

== ENCOUNTER → 2025-03-07 08:46 | Outpatient (BNVA) | payer MEDICARE, MEDICAID, SELFPAY | PROVIDERS: PCP Internal Medicine; Visit Provider Nurse Practitioner Family | DX: I25.10 Atherosclerotic heart disease of native coronary artery without angina pectoris (principal); I48.0 Paroxysmal atrial fibrillation; I95.1 Orthostatic hypotension; I10 Essential (primary) hypertension; E78.5 Hyperlipidemia, unspecified | CPT/HCPCS: 99212 ==